=== PATIENT | female | born 1970 | race Caucasian/White ===

== ENCOUNTER 2025-02-19 05:25 | Inpatient (IN) | payer OTHER ==
[~2025-02-19] VITALS: Ht 165.1 cm; Wt 61.9 kg
[2025-02-19 05:40] VITALS: O2SAT 97
[2025-02-19 05:46] LABS: BASOPHILS % 0.4 % (0.0-2.0); EOSINOPHILS % 0.5 % (0.0-5.0); HEMATOCRIT. 37.3 % (36.0-48.0); HEMOGLOBIN. 12.7 g/dL (12.0-16.0); MEAN CORPUSCULAR HEMOGLOBIN 29.9 pg (28.0-32.0); MEAN CORPUSCULAR HGB CONC 34.2 g/dL (31.0-37.0); MEAN CORPUSCULAR VOLUME 87.7 fL (81.0-99.0); MEAN PLATELET VOLUME 7.6 fl (7.4-10.4); MONOCYTES % 0.4 % (2.0-8.0); NEUTROPHILS % 61.7 % (40.0-76.0); PLATELET 183 x1000/uL (130-400); RED BLOOD CELL COUNT 4.25 mill/uL (4.2-5.4); RED CELL DISTRIBUTION WIDTH 13.1 % (11.6-14.6); WHITE BLOOD COUNT 3.7 x1000/uL (4.5-11.0)
[2025-02-19 05:53] LABS: CHLORIDE 108 mEq/L (98-107); POTASSIUM 3.6 mEq/L (3.5-5.1); SODIUM 138 mEq/L (136-145)
[2025-02-19 05:55] LABS: CALCIUM 9.5 mg/dL (8.7-10.4); CARBON DIOXIDE 26 mEq/L (21-32)
[2025-02-19 06:00] LABS: CREATININE 0.8 mg/dL (0.6-1.0); GLUCOSE 114 mg/dL (70-105); UREA NITROGEN BLOOD 13 mg/dL (9-23)
[2025-02-19 06:02] LABS: TROPONIN I HIGH SENSITIVITY 4 ng/L (3.0-34)
[2025-02-19] MEDS: ONDANSETRON HCL 4MG/2ML INJ IV STA (06:08)
[2025-02-19] MEDS: MORPHINE SULFATE 4 MG/ML INJ (FOR IV/IM USE) IV STA (06:08)
[2025-02-19 10:02] LABS: TROPONIN I HIGH SENSITIVITY < 4 ng/L (3.0-34)
[2025-02-19] MEDS ORDERED: ENOXAPARIN 80MG/0.8ML SYR SUBCUT ONE (10:45)
[2025-02-19] MEDS: KETOROLAC 30MG/ML VIAL IV ONE (11:05)
[2025-02-19] MEDS: SODIUM CHLORIDE 0.9% 500 ML IV ONE (12:03)
[2025-02-19] MEDS: SODIUM CHLORIDE 0.9% 1,000 ML IV SCH (12:34)
[2025-02-19 14:00] VITALS: BP 101/70; PULSE 72; RESP 16; TEMP 36.9; O2SAT 99
[2025-02-19] MEDS ORDERED: ZOLPIDEM TARTRATE 5MG TABLET PO PRN (14:15)
[2025-02-19] MEDS ORDERED: ACETAMINOPHEN 325MG TABLET PO PRN (14:15)
[2025-02-19] MEDS ORDERED: DIPHENHYDRAMINE 50MG/ML VIAL IV PRN (14:15)
[2025-02-19] MEDS ORDERED: ONDANSETRON HCL 4MG/2ML INJ IV PRN (14:15)
[2025-02-19] MEDS ORDERED: CLONIDINE 0.1MG TABLET PO PRN (14:15)
[2025-02-19] MEDS ORDERED: KETOROLAC 30MG/ML VIAL IV PRN (14:15)
[2025-02-19] MEDS ORDERED: GUAIFENESIN 200MG/10ML SUGAR FREE UDC PO PRN (14:15)
[2025-02-19] MEDS ORDERED: MAGNESIUM/ALUMINUM HYDROXIDE/SIMETHICONE 30ML UDC PO PRN (14:15)
[2025-02-19] MEDS: ACETAMINOPHEN 325MG TABLET PO PRN (14:48)
[2025-02-19] MEDS: ENOXAPARIN 40MG/0.4ML SYR SUBCUT SCH (14:49)
[2025-02-19] MEDS ORDERED: IOHEXOL-350 100 ML BOTTLE ONE (15:29)
[2025-02-19 16:00] VITALS: BP 101/56; PULSE 86; RESP 18; TEMP 36.9; O2SAT 98
[2025-02-19 17:40] LABS: *AMPHETAMINES SCREEN URINE NEGATIVE (NEGATIVE); *BARBITURATES SCREEN URINE NEGATIVE (NEGATIVE); *BENZODIAZEPINES SCREEN URINE NEGATIVE (NEGATIVE); *COCAINE SCREEN URINE NEGATIVE (NEGATIVE); CANNABINOID URINE SCREEN NEGATIVE (NEGATIVE); ECSTASY MDMA SCREEN URINE NEGATIVE (NEGATIVE); METHADONE URINE SCREEN NEGATIVE (NEGATIVE); OPIATES URINE SCREEN NEGATIVE (NEGATIVE); PHENCYCLIDINE URINE SCREEN NEGATIVE (NEGATIVE)
[2025-02-19 18:00] VITALS: BP 86/62; PULSE 81; RESP 18; O2SAT 97
[2025-02-19 20:00] VITALS: BP 97/67; PULSE 88; RESP 18; TEMP 37.4; O2SAT 98
[2025-02-19] MEDS: KETOROLAC 30MG/ML VIAL IV SCH (20:49)
[2025-02-19] MEDS: FAMOTIDINE 20MG TABLET PO SCH (20:49)
[2025-02-19] MEDS: SODIUM CHLORIDE 0.9% 3ML FLUSH IVF SCH (20:50)
[2025-02-19 22:00] VITALS: BP 102/52; PULSE 90; RESP 21; O2SAT 93
[2025-02-20] VITALS (12 sets, daily range): BP systolic 73–96; BP diastolic 43–63; PULSE 62–80; RESP 15–24; TEMP 36.4–36.9; O2SAT 92–100
[2025-02-20 00:07] LABS: TROPONIN I HIGH SENSITIVITY < 4 ng/L (3.0-34)
[2025-02-20 06:55] LABS: TROPONIN I HIGH SENSITIVITY < 4 ng/L (3.0-34)
== END 2025-02-20 18:05 | disposition home or self-care (01) | DRG 556 ==
LOC: ER 05:28 → L&D 12:37 → EDBEDREQ 12:38 → EDBEDREQSVC 12:38 → EDBEDREQTM 12:38 → 5EST 13:52
PROVIDERS: ADMIT Internal Medicine; ATTEND Internal Medicine
DX: M79.7 Fibromyalgia (principal)
CPT/HCPCS: 36415; 71045; 71275; 80048; 80305; 83880; 84484; 85025; 85379; 93005; 93306; 93880; 93970; 96374; 96375; 99291; J1650; J1885; J2270; J2405; Q9967